=== PATIENT | female | born 1985 | race Caucasian/White ===

== ENCOUNTER 2018-12-25 | Emergency (ER) | payer SELFPAY ==
[~2018-12-25] VITALS: Ht 160 cm; Wt 81.6 kg
[2018-12-25 00:05] VITALS: BP 134/80
--- NOTE | 2018-12-25 00:05 | NUR ---
TO BED # 12 AMBULATORY
--- NOTE | 2018-12-25 00:15 | NUR ---
PT REPORTS DARK RED VAGINAL BLEEDING WHEN WIPING
--- NOTE | 2018-12-25 00:15 | NUR ---
33/F PRESENTS TO ED, C/O LIGHT RED HEMATURIA, X1 DAY. REPORTS R GREATER THAN L SUPRAPUBIC/LOWER ABD PAIN, X2 DAYS. REPORTS INTERMITTENT NAUSEA THAT HAS RESOLVED. DENIES BURNING/DYSURIA, FEVER, CP, SOB, VOMITING, CONSTIPATION OR DIARRHEA. AOX4, SKIN NORMAL WARM AND DRY, RR EVEN AND UNLABORED. BS HYPOACTIVE X4, ABD SOFT ROUND TENDER TO R GREATER THAN L ABD. HX , UMBILICAL HERNIA REPAIR DENIES RX OR OTC.
--- NOTE | 2018-12-25 00:40 | NUR ---
DR DELEON AT BEDSIDE
--- NOTE | 2018-12-25 00:40 | NUR ---
PT IS A1
--- NOTE | 2018-12-25 00:40 | NUR ---
DR DELEON MADE PT AWARE OF +URINE , PT UNAWARE, TESTS TO BE ORDERED.
[2018-12-25] MEDS ORDERED: MORPHINE SULFATE 4 MG/ML SYR IVP ONE (00:45)
[2018-12-25] MEDS ORDERED: NACL 0.9% 1,000 ML IV ONE (00:45)
[2018-12-25 00:57] LABS: BASOPHILS # (AUTO) 0.1 K/uL (0.00-0.22); BASOPHILS % (AUTO) 0.7 % (0.0-2.0); EOSINOPHILS # (AUTO) 0.2 K/uL (0-0.4); EOSINOPHILS % (AUTO) 1.9 % (0.0-4.0); HEMATOCRIT 36.7 % (36-48); HEMOGLOBIN 12.2 g/dL (12.0-16.0); LYMPHOCYTES # (AUTO) 2.8 K/uL (2.5-16.5); LYMPHOCYTES % (AUTO) 27.9 % (20.5-51.1); MEAN CORPUSCULAR HEMOGLOBIN 30 pg (27-31); MEAN CORPUSCULAR HGB CONC 33 g/dL (33-37); MEAN CORPUSCULAR VOLUME 89.4 fL (80-94); MONOCYTES # (AUTO) 0.7 K/uL (0.8-1.0); MONOCYTES % (AUTO) 7.3 % (1.7-9.3); NEUTROPHILS # (AUTO) 6.3 K/uL (1.8-7.7); NEUTROPHILS % (AUTO) 62.2 % (42.2-75.2); PLATELET COUNT (AUTO) 199 K/uL (140-450); RED CELL DISTRIBUTION WIDTH 15.2 % (11.6-13.7); WHITE BLOOD COUNT (AUTO) 10.1 K/uL (4.8-10.8)
[2018-12-25 01:08] LABS: ANION GAP 11.8 (8-16); CARBON DIOXIDE 27.9 mmol/L (21-32); CREATININE 0.7 mg/dL (0.6-1.3); POTASSIUM 3.7 mmol/L (3.5-5.1)
--- NOTE | 2018-12-25 01:12 | NUR ---
PT LAYING IN BED, SISTER AT BEDSIDE. MEDS GIVEN ORDERED WITH EDUCATION, PT VERBALIZED UNDERSTANDING, REPORTS IMMEDIATE RELIEF FROM PAIN, REPORTS MILD LIGHTHEADEDNESS.
[2018-12-25 01:13] LABS: ALBUMIN 3.6 g/dL (3.4-5.0); TOTAL BILIRUBIN 0.6 mg/dL (0.0-1.0)
--- NOTE | 2018-12-25 01:14 | NUR ---
Ultrasound at bedside.
--- NOTE | 2018-12-25 02:20 | NUR ---
Patient discharged by Dr. Huerta. Written and verbal after care instructions given and explained by Dr. Huerta. Patient verbalized understanding. Ambulatory with steady gait. All questions addressed prior to discharge by Dr. Huerta. Advised to follow up with PMD and OBGYN by Dr. Huerta.
== END 2018-12-25 02:20 | disposition home or self-care (01) ==
LOC: MED
DX: O26.891 Other specified pregnancy related conditions, first trimester (principal); R10.31 Right lower quadrant pain; R31.9 Hematuria, unspecified; Z98.890 Other specified postprocedural states
CPT/HCPCS: 36415; 76801; 80053; 81002; 81025; 84702; 85025; 86900; 86901; 96374; 99284; J2270; J7030; Q0092

== ENCOUNTER 2019-06-16 14:55 | Emergency (ER) | payer SELFPAY ==
[~2019-06-16] VITALS: Ht 160 cm; Wt 90.7 kg
[2019-06-16 15:08] VITALS: BP 124/65
--- NOTE | 2019-06-16 15:12 | NUR ---
Pt ambulated to bed 8.
--- NOTE | 2019-06-16 15:28 | NUR ---
33 Y/O F C/O LEFT LOWER ABDOMINAL PAIN X 3 DAYS. PT STATES THE PAIN IS CONSTANT 6/10, DOES NOT RADIATE. PT ABDOMEN IS FLAT, SOFT. PT HAS NOT TAKEN ANYTHING FOR PAIN AT HOME. PT DENIES N/V/D OR FEVER. PT POSITIONED FOR COMFORT, BED LOWERED, X1 SIDE RAIL IN PLACE. NKA MEDHX: EXTOPIC 12/2018
--- NOTE | 2019-06-16 15:39 | NUR ---
UA RAN, HCG NEGATIVE.
[2019-06-16] MEDS ORDERED: metroNIDAZOLE 250 MG TAB PO ONE (16:15)
[2019-06-16] MEDS ORDERED: KETOROLAC 60 MG/2 ML VIAL IM ONE (16:15)
[2019-06-16] MEDS ORDERED: DICYCLOMINE 20 MG/2 ML VIAL IM ONE (16:15)
[2019-06-16 16:29] LABS: BARBITURATE, URINE NEG. ng/ml (NEG <=200); BENZODIAZEPINE, URINE NEG. ng/mL (NEG <=200); CANNABINOID, URINE NEG. ng/mL (NEG <=50); COCAINE, URINE NEG. ng/mL (NEG <=300); OPIATE, URINE NEG. ng/mL (NEG <=2000); PHENCYCLIDINE SCREEN,URINE NEG. ng/mL (NEG <=25)
[2019-06-16 16:31] LABS: APPEARANCE,URINE CLEAR (CLEAR); BILIRUBIN,URINE NEGATIVE (NEGATIVE); BLOOD, URINE 1+ (NEGATIVE); COLOR,URINE YELLOW (YELLOW); LEUKOCYTE ESTERASE ,URINE NEGATIVE (NEGATIVE); NITRITE, URINE NEGATIVE (NEGATIVE); PH,URINE 6.5 (5.0-9.0); UGLUCOSE NEGATIVE (NEGATIVE)
[2019-06-16 16:58] LABS: WBC,URINE 0-5 /HPF (0-5)
[2019-06-16 17:45] VITALS: BP 124/65
--- NOTE | 2019-06-16 17:45 | NUR ---
Patient discharged with v/s stable. Written and verbal after care instructions given and explained. Patient alert, oriented and verbalized understanding of instructions. Ambulatory with steady gait. All questions addressed prior to discharge. ID band removed. Patient advised to follow up with PMD. Rx of Flagyl 250mg and Bentyl 20mg given. Patient educated on indication of medication including possible reaction and side effects. Opportunity to ask questions provided and answered.
== END 2019-06-16 17:45 | disposition home or self-care (01) ==
LOC: MED 14:55
DX: R10.32 Left lower quadrant pain (principal); R19.7 Diarrhea, unspecified; Z79.899 Other long term (current) drug therapy
CPT/HCPCS: 80305; 81001; 81025; 96372; 99283; J0500; J1885

== ENCOUNTER 2019-12-29 14:35 | Emergency (ER) | payer SELFPAY ==
[~2019-12-29] VITALS: Ht 160 cm; Wt 95.3 kg
[2019-12-29 14:55] VITALS: BP 120/77
--- NOTE | 2019-12-29 15:51 | NUR ---
PT TAKEN TO BED 11.
--- NOTE | 2019-12-29 15:55 | NUR ---
PT C/O INTERMITTENT SHARP SHOOTING MIDSTERNAL PAIN , NON RADIATING , NON PROVOKED X 3 DAYS AGO. DENIES INJURY/TRAUMA, OR EXACERBATION WITH EXERTION, SOB, FEVER, COUGH, N/V/D, SICK CONTACTS. PT REPORTS NOTED BLE SWELLING X YESTERDAY. +1 NON-PITTING EDEMA NOTICED ON MARYLU ANKLE. PATIENT STATES PAIN OF 3/10 AT THIS TIME; VSS; PATIENT POSITIONED FOR COMFORT; HOB ELEVATED; BEDRAILS UP X1; BED DOWN. ER MD MADE AWARE OF PT STATUS.
--- NOTE | 2019-12-29 15:59 | NUR ---
DR. CASTREJON IS EVALUATING PT AT BEDSIDE.
--- NOTE | 2019-12-29 16:01 | NUR ---
XRAY IS AT BEDSIDE.
[2019-12-29 16:41] VITALS: BP 125/67
== END 2019-12-29 16:41 | disposition home or self-care (01) ==
LOC: MED 14:35
DX: M94.0 Chondrocostal junction syndrome [Tietze] (principal)
CPT/HCPCS: 71045; 93005; 99283

== ENCOUNTER 2020-04-12 19:08 | Emergency (ER) | payer SELFPAY ==
[~2020-04-12] VITALS: Ht 160 cm; Wt 99.3 kg
[2020-04-12 19:30] VITALS: BP 115/69
--- NOTE | 2020-04-12 19:34 | NUR ---
PT TAKEN TO BED 01 WITH STEADY GAIT.
--- NOTE | 2020-04-12 19:40 | NUR ---
34 Y/O FEMALE BIB SELF D/T LUQ ABDOMINAL PAIN. 3 WEEKS AGO LUQ HAD NUMBNESS AND TINGLING SENSATION. EARLIER TODAY PT STATES LUQ STARTED TO HAVE ACHING PAIN 6/10 AND TIGHTNESS. UPON INSPECTION, ABDOMEN IS SOFT AND NON-TENDER. PT STATES HAVING NORMAL BOWEL PATTERN. DENIES ANY N/V/D. PMH: DENIES ALLERGY: NKA
[2020-04-12] MEDS ORDERED: KETOROLAC 60 MG/2 ML VIAL IM ONE (19:45)
--- NOTE | 2020-04-12 20:16 | NUR ---
MD MUKHERJEE AT BEDSIDE ASSESSING PATIENT
[2020-04-12 21:09] VITALS: BP 115/69
--- NOTE | 2020-04-12 21:09 | NUR ---
Patient discharged with v/s stable. Written and verbal after care instructions given and explained. Patient alert, oriented and verbalized understanding of instructions. Ambulatory with steady gait. All questions addressed prior to discharge. ID band removed. Patient advised to follow up with PMD. Rx of motrin, norco, prilosec given. Patient educated on indication of medication including possible reaction and side effects. Opportunity to ask questions provided and answered.
== END 2020-04-12 21:09 | disposition home or self-care (01) ==
LOC: MED 19:08
DX: R10.12 Left upper quadrant pain (principal); O09.10 Supervision of pregnancy with history of ectopic pregnancy, unspecified trimester; Z98.890 Other specified postprocedural states
CPT/HCPCS: 81002; 81025; 96372; 99283; J1885

== ENCOUNTER 2020-09-24 13:24 | Emergency (ER) | payer MEDICAID ==
[~2020-09-24] VITALS: Ht 160 cm; Wt 82.6 kg
--- NOTE | 2020-09-24 13:47 | NUR ---
PT AMBULATED TO ER BED 3 WITH A STEADY GAIT.
[2020-09-24 13:49] VITALS: BP 121/62
--- NOTE | 2020-09-24 13:53 | NUR ---
34 Y/O FEMALE C/O CHEST PAIN X1DAY 11/03 DESCRIBES PRESSURE AND RADIATES TO LEFT ARM. PT STATES SHE INITIALLY FELT CHEST PAIN [id number] AGO INTERMITTENTLY AND IS WORSE TODAY. PT STATES +N/V, DENIES FEVER/CHILLS. PT DENIES FAMILY HX OF [place], STATES SISTER WAS DX WITH A HEART DEFECT. DENIES PMH NKA
[2020-09-24] MEDS ORDERED: IBUP-2213 PO (14:49)
[2020-09-24 15:02] VITALS: BP 112/73
== END 2020-09-24 15:02 | disposition home or self-care (01) ==
LOC: MED 13:24
DX: R07.89 Other chest pain (principal); F17.200 Nicotine dependence, unspecified, uncomplicated; Z98.890 Other specified postprocedural states
CPT/HCPCS: 99282

== ENCOUNTER 2020-10-29 21:48 | Emergency (ER) | payer MEDICAID ==
[~2020-10-29] VITALS: Ht 160 cm; Wt 98.9 kg
[~2020-10-29 21:48] MED LIST: IBUP-2213 PO
[2020-10-29 22:37] VITALS: BP 121/80
[2020-10-29 23:05] LABS: BASOPHILS # (AUTO) 0.1 K/uL (0.00-0.22); BASOPHILS % (AUTO) 0.7 % (0.0-2.0); EOSINOPHILS # (AUTO) 0.2 K/uL (0-0.4); EOSINOPHILS % (AUTO) 1.6 % (0.0-4.0); HEMATOCRIT 36.8 % (36-48); HEMOGLOBIN 11.8 g/dL (12.0-16.0); LYMPHOCYTES # (AUTO) 2.8 K/uL (2.5-16.5); LYMPHOCYTES % (AUTO) 29.8 % (20.5-51.1); MEAN CORPUSCULAR HEMOGLOBIN 25 pg (27-31); MEAN CORPUSCULAR HGB CONC 32 g/dL (33-37); MEAN CORPUSCULAR VOLUME 78.4 fL (80-94); MONOCYTES # (AUTO) 0.8 K/uL (0.8-1.0); MONOCYTES % (AUTO) 8.7 % (1.7-9.3); NEUTROPHILS # (AUTO) 5.6 K/uL (1.8-7.7); NEUTROPHILS % (AUTO) 59.2 % (42.2-75.2); PLATELET COUNT (AUTO) 224 K/uL (140-450); RED CELL DISTRIBUTION WIDTH 18.6 % (11.6-13.7); WHITE BLOOD COUNT (AUTO) 9.5 K/uL (4.8-10.8)
[2020-10-29 23:27] LABS: ALBUMIN 3.9 g/dL (3.4-5.0); ANION GAP 7.5 (8-16); CARBON DIOXIDE 30.1 mmol/L (21-32); CREATININE 0.8 mg/dL (0.6-1.3); POTASSIUM 3.6 mmol/L (3.5-5.1); TOTAL BILIRUBIN 0.6 mg/dL (0.0-1.0)
--- NOTE | 2020-10-30 00:03 | NUR ---
34 Y/O FEMALE C/O PALPITATIONS SINCE 1400, CHEST DISCOMFORT. DENIES N/V/D; SKIN IS PINK/WARM/DRY; AAOX4 WITH EVEN AND STEADY GAIT; LUNGS CLEAR BL; HR EVEN AND REGULAR; PT DENIES ANY FEVER, SOB, OR COUGH AT THIS TIME; PATIENT STATES PAIN OF 5/10 AT THIS TIME; VSS; PATIENT POSITIONED FOR COMFORT; HOB ELEVATED; BEDRAILS UP X2; BED DOWN. ER MD MADE AWARE OF PT STATUS. MEDHX: DENIES NKA
--- NOTE | 2020-10-30 00:03 | NUR ---
PT AMBULATED TO BED 3
[2020-10-30] MEDS ORDERED: ASPIRIN 325 MG TAB ONE (00:06)
[2020-10-30] MEDS: ASPIRIN 325 MG TAB PO ONE (00:08)
[2020-10-30 00:32] VITALS: BP 121/80
--- NOTE | 2020-10-30 00:32 | NUR ---
Patient discharged with v/s stable. Written and verbal after care instructions given and explained. Patient verbalized understanding. Ambulatory with steady gait. All questions addressed prior to discharge. Advised to follow up with PMD.
== END 2020-10-30 00:32 | disposition home or self-care (01) ==
LOC: MED 21:48
DX: R07.89 Other chest pain (principal); Z98.890 Other specified postprocedural states; Z79.899 Other long term (current) drug therapy
CPT/HCPCS: 36415; 71045; 80053; 84484; 85025; 93005; 99284

== ENCOUNTER 2021-04-22 10:31 | Emergency (ER) | payer MEDICAID, OTHER ==
[~2021-04-22] VITALS: Ht 160 cm; Wt 102.1 kg
[2021-04-22 10:53] VITALS: BP 108/69
--- NOTE | 2021-04-22 10:58 | NUR ---
PT SENT TO LOBBY
--- NOTE | 2021-04-22 12:25 | NUR ---
35 y/o F BIB self from home c/o dizziness and "heart fluttering" x 3 days. Patient states symptoms began 3 days ago while at home and reports sternal chest wall discomfort. Denies chest pain, reports "heart fluttering/constant" non-radiating discomfort that worsens with movements. Denies nausea, vomiting, chest pain, epigastric pain, SOB, fever, chills, abdominal pain. Denies meds prior to arrival. Pt placed into a gown. Skin pink/warm/dry. Cap refill immediate. VSS; respirations even/unlabored. lung sounds CTA. Bed locked in lowest position, side rails x 1, call light in reach. MEDHX: DENIES ALLERGIES: DENIES
--- NOTE | 2021-04-22 12:34 | NUR ---
Lab at bedside
[2021-04-22 12:43] LABS: BASOPHILS # (AUTO) 0.1 K/uL (0.00-0.22); BASOPHILS % (AUTO) 1.2 % (0.0-2.0); EOSINOPHILS # (AUTO) 0.2 K/uL (0-0.4); EOSINOPHILS % (AUTO) 3.4 % (0.0-4.0); HEMATOCRIT 39.4 % (36-48); HEMOGLOBIN 12.7 g/dL (12.0-16.0); LYMPHOCYTES # (AUTO) 1.9 K/uL (2.5-16.5); LYMPHOCYTES % (AUTO) 31.9 % (20.5-51.1); MEAN CORPUSCULAR HEMOGLOBIN 27 pg (27-31); MEAN CORPUSCULAR HGB CONC 32 g/dL (33-37); MEAN CORPUSCULAR VOLUME 84.8 fL (80-94); MONOCYTES # (AUTO) 0.4 K/uL (0.8-1.0); MONOCYTES % (AUTO) 6.6 % (1.7-9.3); NEUTROPHILS # (AUTO) 3.5 K/uL (1.8-7.7); NEUTROPHILS % (AUTO) 56.9 % (42.2-75.2); PLATELET COUNT (AUTO) 233 K/uL (140-450); RED BLOOD CELL COUNT(AUTO) 4.64 MIL/uL (4.20-5.40); RED CELL DISTRIBUTION WIDTH 17.9 % (11.6-13.7); WHITE BLOOD COUNT (AUTO) 6.1 K/uL (4.8-10.8)
[2021-04-22 13:05] LABS: ALBUMIN 3.5 g/dL (3.4-5.0); CREATININE 0.7 mg/dL (0.6-1.3); THYROID STIMULATING HORMONE 4.07 uIU/mL (0.34-3.74); TOTAL BILIRUBIN 0.5 mg/dL (0.0-1.0)
--- NOTE | 2021-04-22 13:10 | NUR ---
SUSANA Cummings is evaluating patient at bedside
[2021-04-22 13:30] VITALS: BP 115/71
[2021-04-22] MEDS ORDERED: HYDR-1093 PO (14:08)
--- NOTE | 2021-04-22 14:19 | NUR ---
Patient discharged with v/s stable. Written and verbal after care instructions given and explained. Patient alert, oriented and verbalized understanding of instructions. Ambulatory with steady gait. All questions addressed prior to discharge. ID band removed. Patient advised to follow up with PMD. Rx of Hydroxyzine given. Patient educated on indication of medication including possible reaction and side effects. Opportunity to ask questions provided and answered.
== END 2021-04-22 14:19 | disposition home or self-care (01) ==
LOC: MED 10:31
DX: R42 Dizziness and giddiness (principal); R00.2 Palpitations; M54.2 Cervicalgia; Z79.899 Other long term (current) drug therapy
CPT/HCPCS: 36415; 80053; 81025; 84439; 84443; 85025; 93005; 99284

== ENCOUNTER 2021-11-28 10:05 | Emergency (ER) | payer OTHER ==
[~2021-11-28] VITALS: Ht 160 cm; Wt 97.5 kg
[~2021-11-28 10:05] MED LIST changes: +HYDR-1093 PO
[2021-11-28 10:13] VITALS: BP 110/78
--- NOTE | 2021-11-28 10:33 | NUR ---
35 Y/O FEMALE BIB SELF C/O SHARP PAIN IN THE RIGHT, CROSS, NUMBNESS AND PAIN IN THE RIGHT HAND, RADIATING TO THE RIGHT SHOULDER AND BACK. STATED THAT SHE FEELS DIZZY "THE WORLD IS FUZZY" X2 DAYS. 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 NKA PMH: DENIES
--- NOTE | 2021-11-28 11:00 | NUR ---
DR ZARAGOZA AT BEDSIDE
[2021-11-28] MEDS ORDERED: NACL 0.9% 1,000 ML IV ONE (11:10)
[2021-11-28] MEDS ORDERED: diphenhydrAMINE 50 MG/ML VIAL IVP ONE (11:10)
[2021-11-28] MEDS ORDERED: METOCLOPRAMIDE 10 MG/2 ML INJ VIAL IVP ONE (11:10)
[2021-11-28] MEDS ORDERED: ACETAMINOPHEN EXTRA STRENGTH 500 MG TAB PO ONE (11:10)
[2021-11-28] MEDS ORDERED: DEXAMETHASONE 10 MG/ML VIAL IVP ONE (11:10)
[2021-11-28 11:54] LABS: BASOPHILS # (AUTO) 0.1 K/uL (0.00-0.22); BASOPHILS % (AUTO) 1.3 % (0.0-2.0); EOSINOPHILS # (AUTO) 0.2 K/uL (0-0.4); HEMATOCRIT 39.8 % (36-48); LYMPHOCYTES # (AUTO) 1.4 K/uL (2.5-16.5); LYMPHOCYTES % (AUTO) 25.2 % (20.5-51.1); MEAN CORPUSCULAR HEMOGLOBIN 28 pg (27-31); MEAN CORPUSCULAR HGB CONC 33 g/dL (33-37); MEAN CORPUSCULAR VOLUME 84.4 fL (80-94); MONOCYTES # (AUTO) 0.4 K/uL (0.8-1.0); MONOCYTES % (AUTO) 6.9 % (1.7-9.3); NEUTROPHILS # (AUTO) 3.6 K/uL (1.8-7.7); NEUTROPHILS % (AUTO) 63.6 % (42.2-75.2); PLATELET COUNT (AUTO) 182 K/uL (140-450); RED BLOOD CELL COUNT(AUTO) 4.72 MIL/uL (4.20-5.40); RED CELL DISTRIBUTION WIDTH 16.6 % (11.6-13.7); WHITE BLOOD COUNT (AUTO) 5.7 K/uL (4.8-10.8)
[2021-11-28 12:06] LABS: ALBUMIN 3.6 g/dL (3.4-5.0); ANION GAP 10.2 (8-16); CARBON DIOXIDE 26.6 mmol/L (21-32); CREATININE 0.6 mg/dL (0.6-1.3); POTASSIUM 3.8 mmol/L (3.5-5.1); TOTAL BILIRUBIN 0.6 mg/dL (0.0-1.0)
[2021-11-28 12:24] VITALS: BP 114/56
[2021-11-28] MEDS ORDERED: FLONAS NS (12:45)
[2021-11-28] MEDS ORDERED: PSEU-250 PO (12:45)
[2021-11-28] MEDS ORDERED: ACET-10509 PO (12:46)
--- NOTE | 2021-11-28 12:55 | NUR ---
Patient discharged with v/s stable. Written and verbal after care instructions given and explained. Patient alert, oriented and verbalized understanding of instructions. Ambulatory with steady gait. All questions addressed prior to discharge. ID band removed. Patient advised to follow up with PMD. Rx of PSEUDOEPHEDRINE, FLONASE, TYLENOL EXTRA STRENGTH given. Patient educated on indication of medication including possible reaction and side effects. Opportunity to ask questions provided and answered.
== END 2021-11-28 12:55 | disposition home or self-care (01) ==
LOC: MED 10:05
DX: R51.9 Headache, unspecified (principal); R20.2 Paresthesia of skin; Z98.890 Other specified postprocedural states; Z79.899 Other long term (current) drug therapy; Z79.1 Long term (current) use of non-steroidal anti-inflammatories (NSAID)
CPT/HCPCS: 36415; 70450; 80053; 81002; 81025; 84703; 85025; 96361; 96374; 96375; 99284; J1100; J1200; J2765; J7030

== ENCOUNTER 2022-07-06 12:15 | Emergency (ER) | payer OTHER ==
[~2022-07-06] VITALS: Ht 160 cm; Wt 95.3 kg
[~2022-07-06 12:15] MED LIST changes: +ACET-10509 PO; +FLONAS NS; +PSEU-250 PO
[2022-07-06 12:20] VITALS: BP 115/70
--- NOTE | 2022-07-06 13:15 | NUR ---
36YO FEMALE PT C/O INTERMITTENT R SIDED CHEST PAIN [id number]. PAIN ON TWISTING OR DEEP INHALATION. MILD RELIEF AFTER IBUPROFEN. REPORTS FATIGUESSNESS, LIGHTHEADEDNESS AND HEADACHES. DENIES N/V/D, FEVER, CHILLS OR SOB. NOTES FAMILY HX HF. 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 HX: DENIES NKA
--- NOTE | 2022-07-06 13:32 | NUR ---
XRAY AT BEDSIDE
[2022-07-06 14:06] LABS: BASOPHILS # (AUTO) 0.1 K/uL (0.00-0.22); BASOPHILS % (AUTO) 1.3 % (0.0-2.0); EOSINOPHILS # (AUTO) 0.1 K/uL (0-0.4); EOSINOPHILS % (AUTO) 1.9 % (0.0-4.0); HEMATOCRIT 33.4 % (36-48); LYMPHOCYTES # (AUTO) 1.7 K/uL (2.5-16.5); LYMPHOCYTES % (AUTO) 34.3 % (20.5-51.1); MEAN CORPUSCULAR HEMOGLOBIN 25 pg (27-31); MEAN CORPUSCULAR HGB CONC 33 g/dL (33-37); MEAN CORPUSCULAR VOLUME 74.1 fL (80-94); MONOCYTES # (AUTO) 0.3 K/uL (0.8-1.0); MONOCYTES % (AUTO) 6.7 % (1.7-9.3); NEUTROPHILS # (AUTO) 2.8 K/uL (1.8-7.7); NEUTROPHILS % (AUTO) 55.8 % (42.2-75.2); PLATELET COUNT (AUTO) 210 K/uL (140-450); RED CELL DISTRIBUTION WIDTH 16.5 % (11.6-13.7)
[2022-07-06 14:11] LABS: APPEARANCE,URINE CLEAR (CLEAR); BILIRUBIN,URINE 1+ (NEGATIVE); BLOOD, URINE 3+ (NEGATIVE); COLOR,URINE YELLOW (YELLOW); LEUKOCYTE ESTERASE ,URINE NEGATIVE (NEGATIVE); NITRITE, URINE NEGATIVE (NEGATIVE); PH,URINE 5.5 (5.0-9.0); UGLUCOSE NEGATIVE (NEGATIVE)
[2022-07-06 14:36] LABS: RBC,URINE 80-100 /HPF (0-5); WBC,URINE 0-5 /HPF (0-5)
[2022-07-06 14:38] LABS: ALBUMIN 4.1 g/dL (3.4-5.0); ANION GAP 11.9 (8-16); CARBON DIOXIDE 28.7 mmol/L (21-32); CREATININE 0.6 mg/dL (0.6-1.3); POTASSIUM 3.6 mmol/L (3.5-5.1)
[2022-07-06 14:42] LABS: LIPASE 51 U/L (73-393)
[2022-07-06 15:20] VITALS: BP 114/62
--- NOTE | 2022-07-06 15:20 | NUR ---
Patient discharged with v/s stable. Written and verbal after care instructions for CHEST WALL PAIN given and explained. Patient verbalized understanding. Ambulatory with steady gait. All questions addressed prior to discharge. Advised to follow up with PMD.
--- NOTE | 2022-07-06 15:21 | NUR ---
The patient's care was reviewed and supervised by Kimberly Johnson RN.
== END 2022-07-06 15:20 | disposition home or self-care (01) ==
LOC: MED 12:15
DX: R07.2 Precordial pain (principal); R53.1 Weakness; R42 Dizziness and giddiness; R51.9 Headache, unspecified; Z79.899 Other long term (current) drug therapy; Z98.890 Other specified postprocedural states
CPT/HCPCS: 36415; 71045; 80053; 81001; 81025; 83690; 83880; 84484; 85025; 93005; 99285; Q0092

== ENCOUNTER 2023-08-24 05:45 | Emergency (ER) | payer OTHER ==
[~2023-08-24] VITALS: Ht 160 cm; Wt 95.7 kg
[2023-08-24 05:56] VITALS: PULSE 88; RESP 16; TEMP 96.9; O2SAT 99
[2023-08-24 06:04] VITALS: PULSE 88; RESP 16; TEMP 96.9; O2SAT 99
== END 2023-08-24 06:20 | disposition home or self-care (01) ==
LOC: MED 05:45
DX: G44.209 Tension-type headache, unspecified, not intractable (principal); Z79.899 Other long term (current) drug therapy
CPT/HCPCS: 99281

== ENCOUNTER 2023-12-12 14:34 | Emergency (ER) | payer OTHER ==
[~2023-12-12] VITALS: Ht 160 cm; Wt 101.6 kg
[2023-12-12 14:49] VITALS: BP 121/43; PULSE 89; RESP 18; TEMP 98.7; O2SAT 96
[2023-12-12] MEDS: ACETAMINOPHEN EXTRA STRENGTH 500 MG TAB PO ONE (15:33)
[2023-12-12 16:05] LABS: FLU A ANTIGEN negative (NEGATIVE)
[2023-12-12 16:06] LABS: FLU B ANTIGEN NEGATIVE (NEGATIVE)
== END 2023-12-12 16:19 | disposition home or self-care (01) ==
LOC: MED 14:34
DX: J06.9 Acute upper respiratory infection, unspecified (principal); Z20.822 Contact with and (suspected) exposure to COVID-19; Z79.899 Other long term (current) drug therapy
CPT/HCPCS: 71045; 99284